=== PATIENT | female | born 1995 | race Caucasian/White ===

== ENCOUNTER 2016-12-14 13:54 | Emergency (ER) | payer OTHER ==
[~2016-12-14] VITALS: Ht 180.3 cm; Wt 163.6 kg
[2016-12-14 16:15] LABS: ADD MIUA? NO; BILIRUBIN NEGATIVE; BLOOD NEGATIVE; COLOR YELLOW ((YELLOW)); GLUCOSE (STRIP) NEGATIVE; KETONES NEGATIVE; LEUKOCYTES NEGATIVE; NITRITE NEGATIVE; PROTEIN (STRIP) 30; SPECIFIC GRAVITY 1.024 (1.000-1.030); UCUL ADDED? NO; UROBILINOGEN 0.2 MG/DL (0.2-1.0)
[2016-12-14 16:30] LABS: HEMATOCRIT 45.9 % (36.0-46.0); MCH 28.6 PG (29.0-34.0); MCHC 34.6 G/DL (30.0-36.0); MCV 82.6 FL (83-99); MEAN PLAT.VOLUME 10.4 uM^3 (9.5-12.4); PLATELET COUNT 289 K/uL (156-360); RBC DIS.WIDTH-CV 11.9 % (11.8-14.6); RBC DIS.WIDTH-SD 36.3 % (39-53); RED BLOOD COUNT 5.56 M/uL (3.80-5.20); WHITE BLOOD COUNT 8.6 K/uL (4.1-10.2)
[2016-12-14 16:38] LABS: CHLORIDE 110 mEq/L (99-109); POTASSIUM 4.1 mEq/L (3.7-5.4); SODIUM 140 mEq/L (136-147)
[2016-12-14 16:41] LABS: GLUCOSE 81 mg/dL (70-99)
[2016-12-14 16:42] LABS: ANION GAP 7 MEQ/L (2-14); TOTAL BILIRUBIN 0.7 mg/dL (0.0-1.0)
[2016-12-14 16:44] LABS: ALKALINE PHOSPHATASE 102 IU/L (3-129); GFR ESTIMATE (CALCULATED) > 59 mL/min/
[2016-12-14 16:45] LABS: UREA NITROGEN (BUN) 13 mg/dL (9-23)
[2016-12-14 16:48] LABS: LIPASE 23 U/L (1.0-51.0)
[2016-12-14] MEDS ORDERED: PIN-X250 MG PO (17:31)
[2016-12-14 17:42] VITALS: BP 132/80
== END 2016-12-14 17:43 | disposition home or self-care (01) ==
LOC: EME 13:54
PROVIDERS: Physician Assistant
DX: R19.7 Diarrhea, unspecified (principal); R10.9 Unspecified abdominal pain
CPT/HCPCS: 80053; 81003; 83690; 85027; 87177; 87506; 99281; 99284